=== PATIENT | female | born 1940 | race Caucasian/White ===

== ENCOUNTER 2016-10-27 08:39 | Emergency (ER) | payer MEDICARE ==
[2016-10-27] MEDS ORDERED: SURGICEL 3X4 1 EACH PACKET ONE (09:38)
== END 2016-10-27 10:18 | disposition home or self-care (01) ==
LOC: ED 08:39
DX: S90.412A Abrasion, left great toe, initial encounter (principal); I12.0 Hypertensive chronic kidney disease with stage 5 chronic kidney disease or end stage renal disease; N18.6 End stage renal disease; E11.9 Type 2 diabetes mellitus without complications; Z99.2 Dependence on renal dialysis; Z89.511 Acquired absence of right leg below knee; Z87.891 Personal history of nicotine dependence; W01.0XXA Fall on same level from slipping, tripping and stumbling without subsequent striking against object, initial encounter; Y93.02 Activity, running; Y92.002 Bathroom of unspecified non-institutional (private) residence as the place of occurrence of the external cause